=== PATIENT | female | born 1990 | race Caucasian/White ===

== ENCOUNTER 2021-03-29 23:58 | Inpatient (IN) | payer BC, MEDICAID, SELFPAY ==
[2021-03-29 23:04] VITALS: BMI 22.8
[2021-03-29 23:18] VITALS: BP 133/84; PULSE 110
[2021-03-29 23:42] VITALS: BP 129/71; PULSE 108
[2021-03-30] VITALS (44 sets, daily range): BP systolic 106–169; BP diastolic 57–96; PULSE 69–121; RESP 16; TEMP 36.3–36.8; O2SAT 96–99
[2021-03-30 00:14] LABS: Amphetamines Screen Urine Negative (Negative); Barbiturates Screen Urine Negative (Negative); Benzodiazepines Screen Urine Negative (Negative); Cocaine Screen Urine Negative (Negative); Opiate Screen Urine Negative (Negative); PCP Screen Urine Negative (Negative); THC Screen Urine Positive (Negative)
[2021-03-30] MEDS: ampicillin 2,000 MG in sodium chloride 0.9% (plus) 50 ML 100 MG IV (00:16)
[2021-03-30] MEDS: lactated ringers 1,000 ML 999 ML IV (00:16)
[2021-03-30 00:26] LABS: Basophils # 0.1 10^3/uL (0.0-0.1); Basophils % 0.3 %; Eosinophils # 0.1 10^3/uL (0.0-0.8); Eosinophils % 0.8 %; Hematocrit 29.8 % (37.0-47.0); Hemoglobin 9.3 g/dL (11.5-15.3); Lymphocytes # 2.8 10^3/uL (0.8-4.8); Lymphocytes % 19.4 %; Mean Corpuscular HGB Conc 31.2 g/dL (30.0-36.0); Mean Corpuscular Hemoglobin 27.7 pg (28.0-34.0); Mean Corpuscular Volume 88.7 fl (81-99); Mean Platelet Volume 10.6 fL (7.4-10.4); Monocytes # 0.8 10^3/uL (0.2-0.9); Monocytes % 5.4 %; Neutrophils # 10.64 10^3/uL (1.8-7.7); Nucleated Red Blood Cells # 0.1 /100WBC; Nucleated Red Blood Cells % 0.4 %; Platelet Count 332 10^3/cmm (130-400); Red Blood Count 3.36 10^6/uL (4.1-5.3); Red Cell Distribution Width 14.6 % (12.1-15.1); White Blood Count 14.6 10^3/uL (4.0-10.0)
--- NOTE | 2021-03-30 01:42 | P.ANESASSM_ITS ---
Pre-Anesthetic Assessment Pre-Anesthetic Assessment: Height/Weight: Pulse BP Pulse Ox 97 136/85 99 03/30/21 01:39 03/30/21 01:39 03/30/21 01:39 Preop Diagnosis: Labor pain Proposed Procedure: DENNISE Was Beta Yuli taken within 24 hours: N/A Was Clonidine taken within 24 hours: N/A Social: Social History: Tobacco Exam: Pre-Anes Outpt Exam: alert, oriented x 3, clear to auscultation bilaterally and regular rate & rhythm Airway: Submandibular: WNL Cervical ROM: WNL MP: 2 Dentition: Chipped Additional comments: very poor dentition/decayed teeth History/ROS: No significant history except as noted and No significant complaints CV/HEM: CV/HEM: None reported : : None reported Hepatic: Hepatic: None reported GI: GI: None reported Metabolic: Metabolic: None reported Musc/skel: Musc/skel: None reported Neuropsych: Neuropsych: None reported Anesthetic Plan: ASA status: 2 Risk of > 500 ml blood loss (7ml/kg in children): No Meds/Allergies Current Medications: Current Medications Generic Name Dose Route Start Last Admin Trade Name Freq PRN Reason Stop Dose Admin Lactated Ringer's 1,000 mls @ 999 m ls/hr 03/29/21 23:43 03/30/21 00:16 Lactated Ringers IV 999 mls/hr .Q1H1M PRN Administration See label comment s Data Anesthesia CBC & Chem 7: 03/30/21 00:19 Other Labs: Laboratory Results - last 48 hr 03/29/21 03/30/21 03/30/21 23:20 00:19 00:20 WBC 14.6 H RBC 3.36 L Hgb 9.3 L Hct 29.8 L MCV 88.7 MCH 27.7 L MCHC 31.2 RDW 14.6 Plt Count 332 MPV 10.6 H Neut % (Auto) 73.0 Lymph % (Auto) 19.4 [place] % (Auto) 5.4 Eos % (Auto) 0.8 Baso % (Auto) 0.3 Neut # (Auto) 10.64 H Lymph # (Auto) 2.8 [place] # (Auto) 0.8 Eos # (Auto) 0.1 Baso # (Auto) 0.1 Nucleated RBC % (auto) 0.4 Nucleated RBCs # 0.1 Urine Opiates Screen Negative Ur Barbiturates Screen Negative Ur Phencyclidine Scrn Negative Ur Amphetamines Screen Negative U Benzodiazepines Scrn Negative Urine Cocaine Screen Negative U Marijuana (THC) Screen Positive H Blood Type AB Positive Rho(D) Type Positive Antibody Screen Negative Cardiac Studies: No Data to Display
--- NOTE | 2021-03-30 01:44 | P.ANES_ITS ---
Anesthesia Procedures Procedure/Date: 03/30/21 Epidural: Time Out Performed: Yes Consents Signed: Procedure Consent Consent: from patient, risks and benefits reviewed and patient agrees to proceed Lumbar Level: L4-L5 Epidural position: sitting Epidural procedure: sterile prep of area, 1% lidocaine to numb the area, 18 g needle, neg for parest hesia, test dose given, 1.5% xylocaine 1:200k epi, 0.2% Ropivacaine bolus ml (5cc and fentanyl 100mcg bolus), no systemic response, sterile dressing applied and 0.2% Ropiavacaine @ mls/hr (11cc/hour) Additional Comments: ISA at 7cm. cath placed 2cm into space. Pt tolerated well
[2021-03-30] MEDS: dextrose 5%-lactated ringers 1,000 ML 125 ML IV (03:07)
[2021-03-30] MEDS: ampicillin 1,000 MG in sodium chloride 0.9% (plus) 50 ML 100 MG IV (04:10)
[2021-03-30] MEDS: oxytocin 30 UNIT/500 ML BAG 600 UNIT IV (06:34)
--- NOTE | 2021-03-30 07:44 | P.PCNOB_ITS ---
Delivery Note: Date of delivery: March 30, 2021 Pre-delivery diagnoses: 30-year-old 2 para 1-0-0-1 with an estimated gestational age of 39 weeks presenting in active labor Post-delivery diagnoses: Status post spontaneous vaginal delivery Procedure: Spontaneous vaginal delivery Op report anesthesia: Epidural Delivering Physician: Juve Sotelo Estimated blood loss (mL): 100 Pre-Delivery Course: The patient provided to the hospital in active labor. An epidural was placed. She then progressed to complete without difficulty. The patient is a patient of Dr. Blackwell. Apparently she had inconsistent care. We do not have a current copy of her 's. Delivery: DELIVERY: The patient progressed to complete without difficulty. She delivered a male with a weight of 7 pounds 9 ounces with Apgars of 8, 9. The baby was delivered from the FLIP position and placed on the mother's abdomen. The cord was then clamped and cut. There was no nuchal cord but the cord was wrapped around the baby's ankle. There was no meconium. The placenta and 3 vessel cord were delivered intact shortly thereafter. The perineum and vaginal vault were carefully examined. A superficial right vaginal wall laceration was noted that did not require repair. Both the mother and the baby were in stable condition. Post-Delivery Status: Good A&P Assessment and plan (1) 39 weeks gestation of : Status: Acute (2) Spontaneous vaginal delivery: Status: Acute Coding Level of Care Code Acute Client Service Executive for Chg Fwd Diagnoses 39 weeks gestation of Z3A.39 Spontaneous vaginal delivery O80
[2021-03-30] MEDS: ibuprofen 800 mg tablet PO ×3 (10:42→21:39)
[2021-03-30] MEDS: docusate sodium 100 mg Capsule PO (10:43)
[2021-03-30] MEDS: prenatal vitamin Capsule 1 CAP PO (10:43)
[2021-03-30 20:09] LABS: Hematocrit 27.6 % (37.0-47.0); Hemoglobin 8.9 g/dL (11.5-15.3); Mean Corpuscular HGB Conc 32.2 g/dL (30.0-36.0); Mean Corpuscular Hemoglobin 28.4 pg (28.0-34.0); Mean Corpuscular Volume 88.2 fl (81-99); Mean Platelet Volume 10.7 fL (7.4-10.4); Platelet Count 290 10^3/cmm (130-400); Red Blood Count 3.13 10^6/uL (4.1-5.3); Red Cell Distribution Width 14.7 % (12.1-15.1); White Blood Count 14.3 10^3/uL (4.0-10.0)
[2021-03-31] VITALS: BP 116/76; PULSE 87; RESP 15
--- NOTE | 2021-03-31 05:49 | ANE.PACU2 ---
Inpatient post-anesthesia follow up: Airway intact: Yes Vital signs: Temperature 97.3 F Pulse Rate 87 Respiratory Rate 15 Blood Pressure 116/76 Pulse Oximetry 96 Oxygen Delivery Me thod Room Air Oxygen Flow Rate Fraction of Inspir ed Oxygen Hydration adequate: Yes Nausea and vomiting: No Pain level: 2 Mental status: Baseline
[2021-03-31] MEDS: docusate sodium 100 mg Capsule PO (09:41)
[2021-03-31] MEDS: prenatal vitamin Capsule 1 CAP PO (09:41)
[2021-03-31] MEDS: ibuprofen 800 mg tablet PO (09:41)
[2021-03-31 10:50] VITALS: BP 116/77; PULSE 68; RESP 16; TEMP 36.6
--- NOTE | 2021-03-31 12:46 | PM.OBGYDC ---
Discharge Providers INCINERATOR OPERATOR Date of Admission: 03/29/21 23:58 Date of Discharge: 03/31/21 Attending Provider at Admission: Micheline Foster MD Attending Provider at Discharge: Micheline Foster MD Diagnoses at Discharge Discharge Diagnosis (1) 39 weeks gestation of : Status: Acute (2) Spontaneous vaginal delivery: Status: Acute Reason for Visit Reason for Visit: Possible ROM Hospital Course Hospital Course This is a 30-year-old G2 now P2 who presented at 39 weeks gestation to labor and delivery in active labor with spontaneous rupture of membranes. She had a normal spontaneous vaginal delivery of a viable male . She did well after delivery. She had no complaints and said that her vaginal bleeding was less than a period. Information Peripartum Data: Delivery Method: Vaginal Physical Exam Narrative: EXAM NARRATIVE: Awake and alert, texting on her phone. Heart regular rate and rhythm, lungs clear to auscultation bilaterally, abdomen soft and nontender, fundus firm and U- 3. No calf tenderness no extremity edema Urinary Catheter Management^: Hodges: Cath Placed During This Visit: yes Urinary Catheter Date of Insertion: 03/30/21 Urinary Catheter Time of Insertion: 02:45 Discharge Data Data Completed and Pending: Labs from last 24 hours 03/30/21 19:55 WBC 14.3 H RBC 3.13 L Hgb 8.9 L Hct 27.6 L MCV 88.2 MCH 28.4 MCHC 32.2 RDW 14.7 Plt Count 290 MPV 10.7 H Vitals: Last Vital Signs Temp 97.8 F 03/31/21 10:50 Pulse 68 03/31/21 10:50 Resp 16 03/31/21 10:50 BP 116/77 03/31/21 10:50 Pulse Ox 96 03/30/21 20:00 Discharge Plan Discharge Patient Disposition: Home Condition: Stable Prescriptions: Continued 1 tab PO DAILY RF: 0 Discontinued Aspirin Low Dose 81 mg tablet 1 tab PO DAILY RF: 0 Discharge Orders: Discharge Order (Routine); Ordered 03/31/21 Ordered By: Micheline Foster Referrals: Micheline Foster MD [Physician] - 2 weeks Discharge Diet: Usual diet Discharge Activity: Limit activity as instructed Patient Instructions: Opioid Safety Discharge Attestations INCINERATOR OPERATOR Time Spent in Discharge Care*: less than 30 min Coding Level of Care Code Acute Planner/Scheduler for Chg Fwd Diagnoses 39 weeks gestation of Z3A.39 Spontaneous vaginal delivery O80
[2021-03-31 15:15] VITALS: BP 132/82; PULSE 70; RESP 18
== END 2021-03-31 15:35 | disposition home or self-care (01) | DRG 807 ==
LOC: OPOB 23:59 → OBGYN 23:59
PROVIDERS: Family Medicine; Admitting Provider Family Medicine; Visit Provider Family Medicine
DX: O99.334 Smoking (tobacco) complicating childbirth (principal); Z37.0 Single live birth; F17.210 Nicotine dependence, cigarettes, uncomplicated; Z3A.39 39 weeks gestation of pregnancy
CPT/HCPCS: 12345; 36415; 51702; 59025; 59409; 80306; 85025; 85027; 86850; 86900; 99211; J0290; J2795; J3010